=== PATIENT | male | born 1975 | race Caucasian/White ===

== ENCOUNTER 2019-05-28 13:00 | Emergency (ER) | payer OTHER ==
[2019-05-28 13:13] VITALS: BP 142/80
[2019-05-28] MEDS ORDERED: BACITRACIN ZINC TOPICAL OINT PACKET. TP ONE (13:30)
--- NOTE | 2019-05-28 14:04 | PHYS DOC ---
Past History Past Medical History: No Pertinent History Past Surgical History: No Surgical History Alcohol Use: None Drug Use: None Adult General Chief Complaint Chief Complaint: CHEMICAL EXPOSURE HPI HPI Patient is a 44-year-old male with chief burn to the hand. He was pouring liquid concrete for a retaining wall in his backyard he had gloves on but there was mesh on the dorsal aspect he was exposed to the concrete for 8 hours noticed a burning when he was done dorsum of the fingers increasing swelling and redness limited range of motion mild pain only up-to-date on tetanus denies previous medical history Review of Systems Review of Systems Constitutional: Denies fever or chills [] Eyes: Denies change in visual acuity, redness, or eye pain [] HENT: Denies nasal congestion or sore throat [] Respiratory: Denies cough or shortness of breath [] Musculoskeletal: Denies back pain or joint pain [] I All other systems were reviewed and found to be within normal limits, except as documented in this note. Current Medications Current Medications Current Medications Medications (Trade) Dose Ordered Sig/Marcus Start Time Stop Time Status Last Admin Dose Admin Bacitracin (Bacitracin Topical Pkt) 1 pkt 1X ONCE 05/28/19 13:30 05/28/19 13:33 DC Allergies Allergies Allergies Coded Allergies Type Severity Reaction Last Updated Verified No Known Drug Allergies 05/28/19 No Physical Exam Physical Exam Constitutional: Well developed, well nourished, no acute distress, non-toxic appearance. [] HENT: Normocephalic, atraumatic, bilateral external ears normal, oropharynx moist, no oral exudates, nose normal. [] Eyes: PERRLA, EOMI, conjunctiva normal, no discharge. [] Neck: Normal range of motion, no tenderness, supple, no stridor. [] Pulmonary: Normal respiratory effort no increased work of breathing no obvious chest wall trauma Abdomen: Bowel sounds normal, soft, no tenderness, no masses, no pulsatile m asses. [] Skin: Patchy mix letahery appearance minimal tenderness, dorsum of fingers pinky and ring primarily on both hands right greater than left approx 0.5 to two cm in side some cross joints. no significant cellulitis identiifed around them. rom of the fingers particlarly pinky on the right is somehwat limited. Back: No tenderness, no CVA tenderness. [] Extremities: No tenderness, no cyanosis, no clubbing, ROM intact, no edema. [] Neurologic: Alert and oriented X 3, normal motor function, normal sensory function, no focal deficits noted. [] Psychologic: Affect normal, judgement normal, mood normal. [] Current Patient Data Vital Signs Vital Signs Date Time Temp Pulse Resp B/P (MAP) Pulse Ox O2 Delivery O2 Flow Rate FiO2 05/28/19 13:13 66 18 100 Room Air Lab Results Blood Pressure Systolic * 142 mm Hg (100-140) H Blood Pressure Diastolic * 80 mm Hg (60-100) Blood Pressure Mean * 100 mm Hg Pulse Rate * 66 beats per minute (60-90) Respiratory Rate * 18 breaths per minute (12-24) Oxygen Delivery Method * Room Air Bedside Pulse Oximetry * 100 % Treatment Prior to Arrival * No Complaint of Pain * No LOC * Alert EKG EKG [] Radiology/Procedures Radiology/Procedures [] Course & Med Decision Making Course & Med Decision Making Pertinent Labs and Imaging studies reviewed. (See chart for details) []Suspect full-thickness burn of the dorsum of the fingers small overall percent body surface area but does cross joints recommend burn center referral I spoke with Kaylie the burn charge nurse at she can arrange an appointment to be seen in clinic tomorrow at 1 PM I think this is reasonable we placed Xeroform and bacitracin on the patient's mix Questions answered he voiced understanding of the instructions and plan. Dragon Disclaimer Dragon Disclaimer This electronic medical record was generated, in whole or in part, using a voice recognition dictation system. Departure Departure: Impression: Primary Impression: Burn Disposition: 01 HOME, SELF-CARE Condition: STABLE Patient Instructions: Burn Care, [id number] Additional Instructions: You have a burn that meets burn center referral criteria on your hands. I have arranged an appointment for U at 1 PM May 29 at the main campus on [facility] burn [facility], [facility]. Please arrive 20 minutes early to be registered. I have spoken with the burn center charge nurse Margaret about this. DORIS TOUSSAINT MD May 28, 2019 14:04
== END 2019-05-28 13:50 | disposition home or self-care (01) ==
LOC: ER 13:00
DX: T23.231A Burn of second degree of multiple right fingers (nail), not including thumb, initial encounter (principal); T23.232A Burn of second degree of multiple left fingers (nail), not including thumb, initial encounter; X12.XXXA Contact with other hot fluids, initial encounter; Y93.89 Activity, other specified; Y92.89 Other specified places as the place of occurrence of the external cause; Y99.8 Other external cause status
CPT/HCPCS: 16020; 99284

== ENCOUNTER → 2020-01-01 | Outpatient (CLI) | payer OTHER ==
--- NOTE | 2020-01-01 08:08 | RAD ---
Examination: THYROID ULTRASOUND History: Goiter Comparison/Correlation: None Findings: Ultrasound examination of thyroid gland was performed. The right thyroid lobe measures 6.1 cm x 2.2 cm balloon 0.6 cm the left thyroid lobe measures 5.1 cm x 1.4 cm 1.5 cm. Thyroid isthmus measures 0.4 cm anteroposterior. Right thyroid lower pole 1 cm x 0.7 x 0.9 cm diameter cyst is present. There is a small nodule at the left thyroid lobe lower pole measuring 0.5 cm x 0.4 cm x 0.3 cm tall. No flow evident within it. It is of intermediate echotexture and well circumscribed. Impression: TI-RADS category 2-benign. No suspicious lesion identified to require follow-up. Electronically signed by: Jesús Warren MD (01/01/2020 8:05 AM) [id number]
== END ==
LOC: US 07:30
PROVIDERS: ATTEND Family Medicine
DX: E04.1 Nontoxic single thyroid nodule (principal)
CPT/HCPCS: 76536

== ENCOUNTER 2020-09-12 03:10 | Emergency (ER) | payer OTHER ==
[~2020-09-12] VITALS: Ht 182.9 cm; Wt 109.0 kg
--- NOTE | 2020-09-12 03:26 | PHYS DOC ---
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 Review of Systems: Review of Systems: Constitutional: Denies fever or chills Eyes: Denies change in visual acuity HENT: Denies nasal congestion or sore throat Respiratory: Denies cough or shortness of breath Cardiovascular: Denies chest pain or edema GI: Denies abdominal pain, nausea, vomiting, bloody stools or diarrhea : Denies dysuria Musculoskeletal: Denies back pain or joint pain Integument: Denies rash Neurologic: Denies headache, focal weakness or sensory changes Endocrine: Denies polyuria or polydipsia Lymphatic: Denies swollen glands Psychiatric: Denies depression or anxiety Allergies: Allergies: Allergies Coded Allergies Type Severity Reaction Last Updated Verified No Known Drug Allergies 05/28/19 No Physical Exam: PE: Constitutional: Well developed, well nourished, no acute distress, non-toxic appearance. [] HENT: Normocephalic, atraumatic, bilateral external ears normal, oropharynx moist, no oral exudates, nose normal. [] Eyes: PERRLA, EOMI, conjunctiva normal, no discharge. [] Neck: Normal range of motion, no tenderness, supple, no stridor. [] Cardiovascular:Heart rate regular rhythm, no murmur [] Lungs & Thorax: Bilateral breath sounds clear to auscultation [] Abdomen: Bowel sounds normal, soft, no tenderness, no masses, no pulsatile masses. [] Skin: Warm, dry, no erythema, no rash. [] Back: No tenderness, no CVA tenderness. [] Extremities: No tenderness, no cyanosis, no clubbing, ROM intact, no edema. [] Neurologic: Alert and oriented X 3, normal motor function, normal sensory function, no focal deficits noted. [] Psychologic: Affect normal, judgement normal, mood normal. [] EKG: EKG: [] Radiology/Procedures: Radiology/Procedures: [][address] [address] IMAGING REPORT Signed PATIENT: VITOR SCHULER ACCOUNT: [id number] : 1975 LOCATION: ER AGE: 45 SEX: M EXAM STATUS: REG ER ORD. PHYSICIAN: AVELINA CASE MD REASON: Short of air, cough, COVID PROCEDURE: PORTABLE CHEST 1V AP chest x-ray HISTORY: Cough and shortness of breath, positive Covid infection. FINDINGS: Heart size upper limits normal. Mediastinal silhouette is normal. No pneumothorax. No pleural effusions. There are bilateral nodular opacities at the mid to inferior lung zones. Bones are unremarkable. IMPRESSION: Bilateral nodular pulmonary opacities at the mid to inferior lung zones. Given history of positive Covid 19 infection, this most likely represents changes of multilobar viral pneumonia. Multilobar bacterial pneumonia or invasive fungal infection could also account for these findings. Metastatic disease is not excluded. Follow-up will be of benefit. Electronically signed by: Unique Crespo MD (09/12/2020 4:18 AM) [facility] DICTATED AND SIGNED BY: UNIQUE CRESPO MD DATE: 09/12/20 0416 CC: AVELINA CASE MD; RONALD GARCIA DO ~MTH0 0 Heart Score: Risk Factors: Risk Factors: DM, Current or recent (<one month) smoker, HTN, HLP, family history of CAD, obesity. Risk Scores: Score 0 - 3: 2.5% MACE over next 6 weeks - Discharge Home Score 4 - 6: 20.3% MACE over next 6 weeks - Admit for Clinical Observation Score 7 - 10: 72.7% MACE over next 6 weeks - Early Invasive Strategies Course & Med Decision Making: Course & Med Decision Making Pertinent Labs and Imaging studies reviewed. (See chart for details) [] Dragon Disclaimer: Dragon Disclaimer: This electronic medical record was generated, in whole or in part, using a voice recognition dictation system. Departure Departure: Referrals: RONALD GARCIA DO (PCP) Scripts Ibuprofen (IBUPROFEN) 400 Mg Tablet 400 MG PO QIDPRN PRN for fever, discomfort, #120 TAB Prov: AVELINA CASE MD 09/12/20 Acetaminophen (ACETAMINOPHEN) 500 Mg Tablet 1000 MG PO QIDPRN PRN for fever, discomfort, #120 TAB Prov: AVELINA CASE MD 09/12/20 Prednisone (PREDNISONE) 50 Mg Tablet 50 MG PO DAILY for reactive airwqy for 5 Days, #5 TAB Prov: AVELINA CASE MD 09/12/20 Azithromycin (ZITHROMAX) 250 Mg Tablet 250 MG PO DAILY for ANTI-BIOTIC for 5 Days, #5 TAB 0 Refills Prov: AVELINA CASE MD 09/12/20 Apixaban (ELIQUIS) 5 Mg Tablet 10 MG PO BID for dvtprop. for 7 Days, #28 TAB Prov: AVELINA CASE MD 09/12/20 Ondansetron Hcl (ZOFRAN) 4 Mg Tablet 8 MG PO QIDPRN PRN for NAUSEA/VOMITING, #30 TAB Prov: AVELINA CASE MD 09/12/20 AVELINA CASE MD Sep 12, 2020 03:26
[2020-09-12] MEDS ORDERED: HYDROcodon/IBUPROFEN 7.5/200MG 1 TAB TABLET PO ONE (03:30)
[2020-09-12] MEDS ORDERED: IV RINGERS SOLUTION,LACTATED 1,000 ML IV SCH (03:30)
[2020-09-12] MEDS ORDERED: methylPREDNISolone SOD SUCC PF 125 MG/2 ML VIAL. IV ONE (03:30)
[2020-09-12] MEDS ORDERED: ACETAMINOPHEN 500 MG TABLET PO ONE (03:30)
[2020-09-12] MEDS ORDERED: ASPIRIN CHEWABLE 81 MG TABLET. PO ONE (03:30)
[2020-09-12] MEDS ORDERED: ALBUTEROL SULFATE 8GM INHALER. INH ONE (03:30)
[2020-09-12] MEDS ORDERED: APIXABAN 5 MG TABLET. PO SCH (03:30)
[2020-09-12] MEDS ORDERED: AZITHROMYCIN 250 MG TABLET. PO ONE (03:30)
[2020-09-12] MEDS ORDERED: ONDANSETRON ODT 4 MG TAB.RAPDIS PO ONE (03:30)
[2020-09-12] MEDS ORDERED: AZIT250T PO (03:47)
[2020-09-12] MEDS ORDERED: IBUP400T18 PO (03:47)
[2020-09-12] MEDS ORDERED: ACET500T68 PO (03:47)
[2020-09-12] MEDS ORDERED: ONDA4TAB7 PO (03:47)
[2020-09-12] MEDS ORDERED: APIX5TAB3 PO ×2 (03:47→05:09)
[2020-09-12] MEDS ORDERED: PRED50TA PO (03:47)
[2020-09-12 04:13] LABS: BASO % 0 % (0-3); EOS % 0 % (0-3); HEMATOCRIT 42.4 % (39.0-53.0); HEMOGLOBIN 14.7 g/dL (13.0-17.5); LYMPH # 0.6 x10^3/uL (1.0-4.8); LYMPH % 13 % (24-48); MEAN CORPUSCULAR HEMOGLOBIN 29 pg (25-35); MEAN CORPUSCULAR HGB CONC 35 g/dL (31-37); MEAN CORPUSCULAR VOLUME 83 fL (79-100); MONO # 0.2 x10^3/uL (0.0-1.1); MONO % 5 % (0-9); NEUT # 3.6 x10^3uL (1.8-7.7); NEUT % 82 % (31-73); PLATELET COUNT 88 x10^3/uL (140-400); RED BLOOD COUNT 5.13 x10^6/uL (4.30-5.70); RED CELL DISTRIBUTION WIDTH 12.9 % (11.5-14.5); WHITE BLOOD COUNT 4.3 x10^3/uL (4.0-11.0)
--- NOTE | 2020-09-12 04:20 | RAD ---
AP chest x-ray HISTORY: Cough and shortness of breath, positive Covid infection. FINDINGS: Heart size upper limits normal. Mediastinal silhouette is normal. No pneumothorax. No pleur al effusions. There are bilateral nodular opacities at the mid to inferior lung zones. Bones are unre markable. IMPRESSION: Bilateral nodular pulmonary opacities at the mid to inferior lung zones. Given history of positive Covid 19 infection, this most likely represents changes of multilobar viral pneumonia. Mult ilobar bacterial pneumonia or invasive fungal infection could also account for these findings. Metast atic disease is not excluded. Follow-up will be of benefit. Electronically signed by: Kenyon Crespo MD (09/12/2020 4:18 AM) [facility]
[2020-09-12 04:23] LABS: CALCIUM 8.1 mg/dL (8.5-10.1); CREATININE 1.2 mg/dL (0.7-1.3); GFR 65.2
[2020-09-12] MEDS ORDERED: APIXABAN 5 MG TABLET. PO ONE (04:30)
[2020-09-12 04:37] LABS: ALBUMIN 3.5 g/dL (3.4-5.0); C REACTIVE PROTEIN 58.2 mg/L (0-3.3); DIRECT BILIRUBIN 0.2 mg/dL (0.0-0.2); MAGNESIUM 1.9 mg/dL (1.8-2.4); TOTAL BILIRUBIN 0.7 mg/dL (0.2-1.0); TOTAL PROTEIN 6.9 g/dL (6.4-8.2)
--- NOTE | 2020-09-12 04:37 | EKG ---
[address] [address] Test Date: 2020-09-12 Test Time: 04:23:10 Pat Name: VITOR SCHULER Department: Room: Gender: M Manager Mall: : 1975 Requested By: AVELINA CASE Order Number: [id number] Reading MD: Karel Sawyer Measurements Intervals [place] Rate: 88 P: 28 VT: 168 QRS: 32 QRSD: 78 T: 8 QT: 326 QTc: 398 Interpretive Statements SINUS RHYTHM NORMAL ECG RI6.02 No previous ECG available for comparison Electronically Signed On 09-15-2020 10:09:14 CLOUD ARCHITECT by Karel Sawyer
[2020-09-12 05:10] VITALS: BP 156/73
== END 2020-09-12 06:00 | disposition home or self-care (01) ==
LOC: ER 03:10
DX: U07.1 COVID-19 (principal)
CPT/HCPCS: 36415; 71045; 80048; 80076; 82550; 83605; 83690; 83735; 83880; 84484; 85025; 85379; 85610; 85730; 86140; 87040; 93005; 94640; 96361; 96374; 99285; J2930; J7120; Q0162; 94664

== ENCOUNTER → 2021-08-20 | Emergency (ER) | payer OTHER ==
[~2021-08-20] VITALS: Ht 182.9 cm; Wt 110.0 kg
[~2021-08-20] MED LIST: ACET500T68 PO; APIX5TAB3 PO; AZIT250T PO; IBUP400T18 PO; IBUPROFEN 600 MG TABLET. PO ONE; ONDA4TAB7 PO; PRED50TA PO; predniSONE 10 MG TABLET. PO ONE
[2021-08-20 21:18] VITALS: BP 140/77
--- NOTE | 2021-08-20 21:18 | PHYS DOC ---
Past History Past Medical History: No Pertinent History Past Surgical History: No Surgical History Alcohol Use: None Drug Use: None General Adult EDM: Chief Complaint: SORE THROAT HPI: HPI: ".. I ve been sick since weekend... I got a strept and covid test tuesday... they were negative.. but it still feels like strept... I get it every year about this time..." " I used to get strept... all the time until I got my tonsils out... and now only get it about once a year... 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 Patient states he did get rapid testing for COVID as well as strep on Tuesday at [place]. Reportedly the test results were negative. Patient denies any recent travel outside the [facility]. No history of recent TDY's. No history of trauma. No history of specific ill contacts. No history immunosuppression. Normally healthy. Up-to-date with vaccinations. Including COVID and flu vaccination. Review of Systems: Review of Systems: Constitutional: Subjective complaints of fever or chills Eyes: Denies change in visual acuity HENT: Complaints of sore throat Respiratory: Denies cough or shortness of breath Cardiovascular: Denies chest pain or edema GI: Denies abdominal pain, nausea, vomiting, bloody stools or diarrhea : Denies dysuria Musculoskeletal: Denies back pain or joint pain Integument: Denies rash Neurologic: Denies headache, focal weakness or sensory changes Endocrine: Denies polyuria or polydipsia Lymphatic: Denies swollen glands Psychiatric: Denies depression or anxiety Family History: Family History: Noncontributory to presentation Current Medications: Current Meds: See nursing for home meds Allergies: Allergies: Allergies Coded Allergies Type Severity Reaction Last Updated Verified No Known Drug Allergies 05/28/19 No Physical Exam: PE: Constitutional: Well developed, well nourished, moderate acute distress, non-t oxic appearance. [] HENT: Normocephalic, atraumatic, bilateral external ears normal, oropharynx moist, injected pharynx, postnasal drainage, no oral exudates, nose swollen turbinates and clear rhinorrhea. Eyes: PERRLA, EOMI, conjunctiva normal, no discharge. [] Neck: Normal range of motion, no tenderness, supple, no stridor. [] Cardiovascular:Heart rate regular rhythm, no murmur [] Lungs & Thorax: Bilateral breath sounds equal apex auscultation [] Abdomen: Bowel sounds normal, soft, no tenderness, no masses, no pulsatile masses. [] Skin: Warm, dry, no erythema, no rash. [] Back: No tenderness, no CVA tenderness. [] Extremities: No tenderness, no cyanosis, no clubbing, ROM intact, no edema. R ight shoulder scar Neurologic: Alert and oriented X 3, normal motor function, normal sensory function, no focal deficits noted. [] Psychologic: Affect normal, judgement normal, mood normal. [] EKG: EKG: [] Radiology/Procedures: Radiology/Procedures: [] Heart Score: C/O Chest Pain: N/A Risk Factors: Risk Factors: DM, Current or recent (<one month) smoker, HTN, HLP, family history of CAD, obesity. Risk Scores: Score 0 - 3: 2.5% MACE over next 6 weeks - Discharge Home Score 4 - 6: 20.3% MACE over next 6 weeks - Admit for Clinical Observation Score 7 - 10: 72.7% MACE over next 6 weeks - Early Invasive Strategies Course & Med Decision Making: Course & Med Decision Making Pertinent Labs and Imaging studies reviewed. (See chart for details) Patient rapid strep was negative, rapid influenza and COVID were negative. Patient to push fluids. Patient take Tylenol and ibuprofen for pain and or fever. Patient Benadryl 50 mg up to 4 times a day may be helpful for congestion and drainage. Gargle with Listerine.4x day. Follow-up with primary care. Return if any concerns. Would self isolate the next 5 days. Impression" 1. Viral pharyngitis [] Dragon Disclaimer: Dragon Disclaimer: This electronic medical record was generated, in whole or in part, using a voice recognition dictation system. Departure Departure: Referrals: PCP,UNKNOWN (PCP) Dragon Disclaimer This chart was dictated in whole or in part using Voice Recognition software in a busy, high-work load, and often noisy Emergency Department environment. It may contain unintended and wholly unrecognized errors or omissions. Dragon Disclaimer This chart was dictated in whole or in part using Voice Recognition software in a busy, high-work load, and often noisy Emergency Department environment. It may contain unintended and wholly unrecognized errors or omissions. AVELINA CASE MD Aug 20, 2021 21:18
[2021-08-20 22:12] LABS: INFLUENZA A PATIENT NEGATIVE (NEGATIVE); INFLUENZA B PATIENT NEGATIVE (NEGATIVE)
== END | disposition home or self-care (01) ==
LOC: ER 20:58
DX: J02.8 Acute pharyngitis due to other specified organisms (principal); Z20.822 Contact with and (suspected) exposure to COVID-19
CPT/HCPCS: 87070; 87428; 87880; 99283; J7512